=== PATIENT | female | born 1960 | race Caucasian/White ===

== ENCOUNTER → 2016-10-26 | Outpatient (CLI) | payer OTHER ==
[~2016-10-26] MED LIST: ALBU6.7H INH; AMLO5TAB4 PO; ASPI-621 PO; ATOR10TA PO; ATOR20TA PO; ATOR20TA9 PO; CARV12.543 PO; CARV6.2512 PO; CLOP75TA PO; CLOP75TA22 PO; DIAZ5TAB4 PO; FLUT1AER INH; HYDR-3341 PO; ISOS30TA8 PO; LISI-167 PO; LISI-170 PO; LISI40TA PO; METO-93 PO; METO25TA91 PO; NITR0.4T8 SL; OXYC-96 PO; PANT40TA5 PO; PRED10TA PO; RANI150T8 PO; TIOT18CA INH
== END | disposition home or self-care (01) ==
LOC: PETCFH 07:53
PROVIDERS: ATTEND Nurse Practitioner
DX: R91.1 Solitary pulmonary nodule (principal)
CPT/HCPCS: 78815; A9552